=== PATIENT | male | born 1990 | race Two or more races ===

== ENCOUNTER 2022-01-28 11:41 | Emergency (ER) | payer SELFPAY | END 2022-01-28 13:22 | disposition home or self-care (01) | LOC: MW.ED 11:41 | DX: S09.90XA Unspecified injury of head, initial encounter (principal); W18.30XA Fall on same level, unspecified, initial encounter | CPT/HCPCS: 70450; 70450-26; 99283 ==

== ENCOUNTER 2022-09-09 08:38 | Inpatient (IN) | payer SELFPAY ==
[2022-09-09] MEDS ORDERED: Thiamine 100 MG in Sodium Chloride 0.9% 100 ML IV ONE (08:45)
[2022-09-09] MEDS ORDERED: Lactated Ringers 1,000 ML IV SCH (08:45)
[2022-09-09] MEDS ORDERED: Folic Acid 1 MG/0.2 ML UD Syringe IV STA (08:46)
[2022-09-09] MEDS ORDERED: Sodium Chloride 23.4% 77 MEQ in Dextrose 10% in Water 500 ML IV SCH ×2 (09:00)
[2022-09-09] MEDS ORDERED: Dextrose 10% in Water 500 ML IV SCH ×2 (09:15→12:30)
[2022-09-09] MEDS ORDERED: Thiamine 200 MG/2 ML MDV IVPUSH ONE (09:15)
[2022-09-09 09:37] LABS: CORONAVIRUS COVID-19 NAA NEGATIVE (NEGATIVE); INFLUENZA A NAA NEGATIVE (NEGATIVE); INFLUENZA B NAA NEGATIVE (NEGATIVE); RESPIRATORY SYNCYTIAL VIR NAA NEGATIVE (NEGATIVE)
[2022-09-09 09:46] LABS: ACETAMINOPHEN <2.0 ug/mL; BLOOD UREA NITROGEN,BUN 19 mg/dL (7.0-18.0); CARBON DIOXIDE,CO2 21.9 mmol/L (21.0-32.0); CHLORIDE,CL 101 mmol/L (98-107); ESTIMATED GFR 92 mL/min (>60); GLUCOSE RANDOM 65 mg/dL (74-106); LIPASE 47 U/L (73-393); POTASSIUM,K 4.1 mmol/L (3.5-5.1); SODIUM,NA 138 mmol/L (136-148)
[2022-09-09] MEDS ORDERED: Ibuprofen 400 MG Tab PO ONE (09:48)
[2022-09-09] MEDS ORDERED: Acetaminophen 325 MG Tab PO ONE (09:48)
[2022-09-09] MEDS ORDERED: Lidocaine 5% 700 MG Patch TOP ONE (09:48)
[2022-09-09 12:50] LABS: HEMOGLOBIN A1C 5.4 %
[2022-09-09] MEDS ORDERED: Ondansetron 4 MG/2 ML SDV IVPUSH PRN (16:22)
[2022-09-09] MEDS ORDERED: Ondansetron 4 MG Tab.DIS PO PRN (16:22)
[2022-09-09] MEDS ORDERED: Temazepam 15 MG Cap PO PRN (16:22)
[2022-09-09] MEDS ORDERED: Ketorolac 30 MG/ML SDV IVPUSH PRN (16:22)
[2022-09-09] MEDS ORDERED: Dextrose 5%-0.45% NaCl 1,000 ML IV SCH (16:30)
[2022-09-10 09:33] LABS: CARBON DIOXIDE,CO2 27.2 mmol/L (21.0-32.0); POTASSIUM,K 3.9 mmol/L (3.5-5.1)
== END 2022-09-10 14:09 | disposition home or self-care (01) | DRG 314 ==
LOC: MW.ED 08:38 → MW.ICU 15:44
PROVIDERS: ADMIT Internal Medicine; ATTEND Internal Medicine
DX: I30.0 Acute nonspecific idiopathic pericarditis (principal); G92.9 Unspecified toxic encephalopathy; E46 Unspecified protein-calorie malnutrition; F15.129 Other stimulant abuse with intoxication, unspecified; E16.2 Hypoglycemia, unspecified; F10.10 Alcohol abuse, uncomplicated; Z20.822 Contact with and (suspected) exposure to COVID-19; Z87.891 Personal history of nicotine dependence; Z59.00 Homelessness unspecified
CPT/HCPCS: 0241U; 36415; 70450; 70450-26; 70486; 70486-26; 71045; 71045-26; 73030-26-RT; 73030-RT; 76705; 76705-26; 80053; 80143; 80179; 80305-QW; 80307; 81003; 82009; 82140; 82533; 82803; 82947; 83036; 83605; 83690; 83735; 84100; 84443; 84484; 84681; 85025; 85610; 85652; 86140; 93005; 93010; 96374; 96375; 99291; A9270-GY; J3411; J3490; J7042; J7120

== ENCOUNTER 2022-12-26 07:14 | Emergency (ER) | payer SELFPAY ==
[2022-12-26] MEDS ORDERED: Sodium Chloride 0.9% 1,000 ML IV ONE (07:34)
[2022-12-26 07:59] LABS: BASOPHILS PERCENT AUTO 0.2 % (0.0-1.5); EOSINOPHILS PERCENT AUTO 0.5 % (0.0-7.0); HEMATOCRIT 41.4 % (38.0-50.0); HEMOGLOBIN 14.6 g/dL (13.0-17.0); LYMPHOCYTES ABSOLUTE AUTO 1.9 K/uL (0.6-2.4); LYMPHOCYTES PERCENT AUTO 44.5 % (16.0-40.0); MEAN CORPUSCULAR HEMOGLOBIN 31.9 pg (27.0-32.0); MEAN CORPUSCULAR HGB CONC 35.3 g/dL (31.0-37.0); MEAN CORPUSCULAR VOLUME 90.6 fL (80.0-98.0); MONOCYTES ABSOLUTE AUTO 0.2 K/uL (0.0-0.8); MONOCYTES PERCENT AUTO 3.4 % (0.0-15.0); NEUTROPHILS ABSOLUTE AUTO 2.2 K/uL (1.4-5.7); NEUTROPHILS PERCENT AUTO 51.4 % (48.0-80.0); NRBC ABSOLUTE 0 K/uL; PLATELET COUNT,PLT 231 K/uL (150-400); RED BLOOD CELL COUNT 4.57 M/uL (4.50-5.90); WHITE BLOOD CELL COUNT,WBC 4.36 K/uL (4.0-11.0)
[2022-12-26 08:23] LABS: BLOOD UREA NITROGEN,BUN 8 mg/dL (7.0-18.0); CALCIUM 8.9 mg/dL (8.5-10.1); CHLORIDE,CL 102 mmol/L (98-107); CREATININE 1.3 mg/dL (0.8-1.3); EST CRCL DRUG DOSING (CG) 76.98 mL/min; GLUCOSE RANDOM 79 mg/dL (74-106); SODIUM,NA 140 mmol/L (136-148)
[2022-12-26 08:29] LABS: ESTIMATED GFR 75 mL/min (>60)
[2022-12-26 08:49] LABS: AMPHETAMINES SCREEN, URINE PRESUMPTIVE POSITIVE (CUTOFF=500); BARBITURATE SCREEN,URINE NEGATIVE (CUTOFF=200); BENZODIAZEPINES SCREEN,URINE NEGATIVE (CUTOFF=150); BUPRENORPHINE SCREEN,URINE NEGATIVE (CUTOFF=10); METHADONE SCREEN, URINE NEGATIVE (CUTOFF=200); METHAMPHETAMINES SCREEN, URINE PRESUMPTIVE POSITIVE (CUTOFF=500); OXYCODONE SCREEN,URINE NEGATIVE (CUT0FF=100); PCP SCREEN,URINE NEGATIVE (CUTOFF=25); PROPOXYPHENE SCREEN,URINE NEGATIVE (CUTOFF=300); THC SCREEN,URINE 20 NG/ML PRESUMPTIVE POSITIVE (CUTOFF=50)
== END 2022-12-26 09:35 | disposition home or self-care (01) ==
LOC: MW.ED 07:14
DX: R06.02 Shortness of breath (principal); F15.10 Other stimulant abuse, uncomplicated
CPT/HCPCS: 36415; 71045; 80048; 80305; 84484; 85025; 93005; 96360; 99285; J7030; 93010; 99283

== ENCOUNTER 2022-12-29 09:26 | Emergency (ER) | payer SELFPAY | END 2022-12-29 10:35 | LOC: MW.ED 09:26 | DX: R53.1 Weakness (principal); F17.210 Nicotine dependence, cigarettes, uncomplicated | CPT/HCPCS: 99282; 99283 ==

== ENCOUNTER 2023-01-15 23:14 | Emergency (ER) | payer SELFPAY ==
[2023-01-16] MEDS ORDERED: Sodium Chloride 0.9% 10 ML Syringe FLUSH PRN (01:46)
[2023-01-16] MEDS ORDERED: Sodium Chloride 0.9% 2.5 ML Syringe FLUSH PRN (01:46)
[2023-01-16] MEDS ORDERED: Sodium Chloride 0.9% 1,000 ML IV ONE (01:47)
[2023-01-16] MEDS ORDERED: LORazepam 2 MG/ML SDV IVPUSH ONE (01:47)
[2023-01-16 02:52] LABS: BASOPHILS PERCENT AUTO 0.2 % (0.0-1.5); EOSINOPHILS ABSOLUTE AUTO 0.1 K/uL (0.0-0.7); HEMATOCRIT 39.9 % (38.0-50.0); LYMPHOCYTES PERCENT AUTO 33.2 % (16.0-40.0); MEAN CORPUSCULAR HGB CONC 35.1 g/dL (31.0-37.0); MEAN CORPUSCULAR VOLUME 91.1 fL (80.0-98.0); MONOCYTES ABSOLUTE AUTO 0.4 K/uL (0.0-0.8); MONOCYTES PERCENT AUTO 5.9 % (0.0-15.0); NEUTROPHILS ABSOLUTE AUTO 3.6 K/uL (1.4-5.7); NEUTROPHILS PERCENT AUTO 59.7 % (48.0-80.0); NRBC ABSOLUTE 0 K/uL; PLATELET COUNT,PLT 243 K/uL (150-400); RED BLOOD CELL COUNT 4.38 M/uL (4.50-5.90); WHITE BLOOD CELL COUNT,WBC 6.09 K/uL (4.0-11.0)
[2023-01-16 03:19] LABS: A/G RATIO 1.2 (0.9-1.6); ALBUMIN 4.2 g/dL (3.4-5.0); BILIRUBIN TOTAL 0.8 mg/dL (0.2-1.0); CALCIUM 8.6 mg/dL (8.5-10.1); CARBON DIOXIDE,CO2 21.7 mmol/L (21.0-32.0); CREATININE 1.1 mg/dL (0.8-1.3); EST CRCL DRUG DOSING (CG) 90.97 mL/min; POTASSIUM,K 3.3 mmol/L (3.5-5.1); PROTEIN TOTAL,TP 7.7 g/dL (6.4-8.2)
== END 2023-01-16 04:35 ==
LOC: MW.ED 23:14
DX: F41.9 Anxiety disorder, unspecified (principal); F10.10 Alcohol abuse, uncomplicated
CPT/HCPCS: 36415; 70450; 80053; 80307; 85025; 93005; 96361; 96374; 99284; J2060; J3490; J7030; 93010